=== PATIENT | female | born 1965 | race Caucasian/White ===

== ENCOUNTER → 2021-06-07 | Outpatient (CLI) | payer OTHER ==
[~2021-06-07] MED LIST: GADOTERATE 5 MMOL/10ML VIAL. INT ART ONE; IOHEXOL 300 MG/ML 50 ML VIAL. INT ART ONE; LIDOCAINE 1% Multi-Dose 20 ML VIAL. ID ONE
--- NOTE | 2021-06-07 15:33 | KCIC ---
Study: Fluoroscopically guided arthrogram of the left shoulder joint for MRI Indication: Rotator cuff tear. Contrast: 0.1 cc Clariscan Technique: A timeout was performed prior to beginning the procedure in order to confirm patient identity and lat erality of the injection. The risks, benefits and alternatives of the procedure were discussed. Utilizing sterile technique, fluoroscopic guidance and local anesthesia with 1% lidocaine, the left s houlder joint was accessed utilizing a 22-gauge, 3.5" spinal needle. Confirmation of needle position was obtained with a small amount of radiopaque contrast. Subsequently, 12 cc of a mixture containing 5 cc lidocaine, 15 cc saline and 0.1 cc Clariscan was injected. There were no immediate post procedur e complications. Fluoroscopy time: 21 seconds Number of images obtained: 1 Impression: Technically successful fluoroscopic guided arthrogram of the left shoulder joint without immediate po stprocedure complication. Electronically signed by: RASHAWN LAL MD (06/07/2021 3:30 PM) [id number]
--- NOTE | 2021-06-07 16:30 | KCIC ---
STUDY: MRI arthrogram of the left shoulder INDICATION: Rotator cuff tear. COMPARISON: None. TECHNIQUE: Multiplanar MR imaging of the left shoulder performed after the intra-articular injection of contrast material. The injection portion of the procedure is detailed in a separate report. FINDINGS: AC joint: Mild arthrosis at the AC joint. No gadolinium-containing fluid within the subacromial subde ltoid bursa however there is bursitis with [place] fluid distention of the bursa. Rotator cuff: High-grade bursal sided tear at the supraspinatus/infraspinatus junction approximately 1.7 cm medial to the footprint, image 12 series 14, involving up to 75 percent cross-sectional tendon thickness. Background infraspinatus more so than supraspinatus tendinosis. The teres minor and subsc apularis are intact. Maintained rotator cuff muscular bulk. Small focus of hydroxyapatite deposition within the mid infraspinatus at its insertion. Labrum: Subtle SLAP-type tear extending from superior to posterior/superior. Long head biceps tendon: Intact and normally located. Cartilage: No high-grade or full-thickness chondral defect. Bones: Mildly heterogeneous marrow signal favored physiologic as there is no involvement of the humer al epiphysis. No acute or aggressive abnormality. Miscellaneous: Unremarkable axillary soft tissues. Impression: 1. Focal high-grade bursal sided tear at the supraspinatus/infraspinatus junction involving up to 75% tendon cross-sectional thickness (image 12 series 14). The tear occurs approximately 1.7 cm medial t o the footprint. Background infraspinatus more so than supraspinatus tendinosis. 2. Small focus of hydroxyapatite deposition within the mid infraspinatus at the footprint. Surroundin g heterogeneous T2 signal elevation of the infraspinatus tendon may be related to tendinosis though a ctive calcific tendinitis is also possible. 3. Suspected subtle SLAP-type tear extending from superior to posterior. Intact and normally located long head biceps. 4. Subacromial subdeltoid bursitis with [place] fluid distention of the bursa. No gadolinium within th e bursa to indicate a full-thickness rotator cuff tear. Electronically signed by: RASHAWN LLA MD (06/07/2021 4:27 PM) [id number]
== END | disposition home or self-care (01) ==
LOC: KCIC 12:43
PROVIDERS: ATTEND Physician Assistant
DX: M75.112 Incomplete rotator cuff tear or rupture of left shoulder, not specified as traumatic (principal); S43.432A Superior glenoid labrum lesion of left shoulder, initial encounter; Z88.0 Allergy status to penicillin; X58.XXXA Exposure to other specified factors, initial encounter; Y93.89 Activity, other specified; Y92.89 Other specified places as the place of occurrence of the external cause; Y99.8 Other external cause status
CPT/HCPCS: 23350; 73222; 77002; A9575; J3490; Q9967

== ENCOUNTER 2021-08-03 06:06 | Day surgery (SDC) | payer OTHER ==
[~2021-08-03] VITALS: Ht 167.6 cm; Wt 118.0 kg
[~2021-08-03 06:06] MED LIST changes: +ESCITALOPRAM OX10 MG PO; -GADOTERATE 5 MMOL/10ML VIAL. INT ART ONE; +HYDROmorphone 2 MG/ML INJ. IVP PRN; -IOHEXOL 300 MG/ML 50 ML VIAL. INT ART ONE; +IV RINGERS,LACTATED 1000ML 1,000 ML IV SCH; -LIDOCAINE 1% Multi-Dose 20 ML VIAL. ID ONE; +MORPHINE SULFATE 2 MG/ML INJ. IVP PRN; +NYST15CR TP; +PANT40TA77 PO; +PRAV80TA2 PO; +PROCHLORPERAZINE 10 MG/2 ML VIAL. IVP PRN; +ZOLP5TAB PO; +fentaNYL PF VIAL 100 MCG/2 ML VIAL IVP PRN
[2021-08-03 06:31] VITALS: BP 162/70
[2021-08-03] MEDS ORDERED: PROPOFOL 10 MG/ML (20ML) VIAL. IV ONE (06:43)
[2021-08-03] MEDS ORDERED: ROCURONIUM 50 MG/5 ML VIAL. ONE (06:43)
[2021-08-03] MEDS ORDERED: ONDANSETRON PF 4 MG/2 ML VIAL. ONE (06:44)
[2021-08-03] MEDS ORDERED: fentaNYL PF VIAL 100 MCG/2 ML VIAL ONE (06:44)
[2021-08-03] MEDS ORDERED: DEXAMETHASONE SOD PHOS 4 MG/ML VIAL ONE ×2 (06:44→07:10)
[2021-08-03] MEDS ORDERED: MIDAZOLAM HCL/PF 2 MG/2 ML VIAL. ONE (07:10)
[2021-08-03] MEDS ORDERED: LIDOCAINE 1% PF 2 ML VIAL. ONE (07:11)
[2021-08-03] MEDS ORDERED: ROPIVacaine 0.5% PF 20 ML VIAL. ONE (07:11)
[2021-08-03] MEDS ORDERED: SCOPOLAMINE 1.5MG PATCH. TD ONE (07:15)
[2021-08-03] MEDS ORDERED: EPINEPHrine VIAL 30 MG/30 ML VIAL ONE (07:25)
[2021-08-03] MEDS ORDERED: BUPIVACAINE MPF 0.5% 30 ML VIAL. ONE (07:25)
[2021-08-03] MEDS ORDERED: LIDOCAINE 1% Multi-Dose 20 ML VIAL. ONE (07:25)
[2021-08-03] MEDS ORDERED: OXYC-325 PO (07:43)
--- NOTE | 2021-08-03 07:45 | DISCH ---
DISCHARGE INSTRUCTIONS Condition on Discharge Condition on Discharge: Stable Activity After Discharge Activity Instructions for Disc: Other, see below Other activity instructions: arm to remain in sling, ok to remove for shower Bathing Instructions: Shower-keep dressing dry Weight Bearing Status after Di: Non weight bearing Diet after Discharge Diet after Discharge: Regular Wound Incision Care Wound/Incision Care: Ice to area for comfort, Keep wound/cast CDI, Change dressing Other wound/incision instructi: change dressing in [address] after DC Call your doctor for: Concerns you may have Follow-Up Follow up with: Kaur in 2wks Treatment/Equipment after DC Adaptive Equipment Issued: None KARUNA TOURE II, MD Aug 03, 2021 07:45
[2021-08-03] MEDS ORDERED: PHENYLEPHRINE in 0.9% NACL PF 1 MG/10 ML SYRINGE. IV ONE (07:59)
[2021-08-03] MEDS ORDERED: SUGAMMADEX SODIUM 200 MG/2 ML VIAL. IVP ONE (08:00)
--- NOTE | 2021-08-03 09:07 | PDOC4 ---
Operative Note Operative Note Date of procedure: 08/03/2021 Surgeon: Romie Toure Multimedia Designer: Sanchez Boland, certified alcohol counselor Preoperative diagnosis: Left shoulder rotator cuff tear Possible SLAP tear left shoulder Postoperative diagnosis: Left shoulder labral tear Procedure performed: Arthroscopic left shoulder labral debridement Anesthesia: General plus regional nerve block Findings: Small amount of grade 2-3 changes in glenoid, humeral head cartilage unremarkable Intra-articular portion of rotator cuff essentially unremarkable No loose bodies Tearing of the free edge of labrum superiorly and anteriorly Biceps tendon without pathology Complications: None Blood loss: 10 mL Reason for procedure: Patient is a very pleasant 48-year-old female with chronic shoulder pain who had failed conservative therapies. Please see my outpatient notes for further details. Clinical and radiographic examination including MR arthrogram are consistent with the above preoperative diagnosis and after discussion of the risk benefits and alternatives patient wished to proceed with surgery. Description of procedure: Patient was greeted in the preoperative holding area by myself or the correct extremity was verified and marked. She had placement of a regional nerve block by the anesthesiology team. She was taken back to the operative suite and her antibiotics were started as she was brought back. Once in the operating room, she was transferred gently supine to the operating room table and secured to the bed with all pressure points padded. She underwent successful induction of a general anesthetic. We then placed a large pad under her legs and set her up in a beachchair position maintaining her C-spine in neutral position. After this, we proceeded to prep and drape left upper extremity and shoulder girdle in our usual sterile fashion including [place] at the periphery. I then palpated marked surface anatomy and gricelda lines for my planned incisions. We conducted our standard preoperative timeout. I then used a spinal needle to localize a posterior superior portal and incised skin in accordance with this. I introduced the blunt arthroscopic trocar into the glenohumeral joint followed by the camera. I then used a spinal needle to localize an anterosuperior portal and incised skin accordance with this and dilated this hole as well. I then introduced my probe and conducted my diagnostic arthroscopy with above-noted findings. She had some fraying of her labrum and I debrided this with the shaver and reinspected the labrum I felt it was intact with a solid biceps anchor. I then directed my attention back to the supraspinatus and noted a small amount of inflammation and therefore opted to use a spinal needle to shuttle a PDS suture through this area to view it from the bursal side. I withdrew the equipment from the glenohumeral joint and repositioned the camera in the subacromial space and immediately noted a large amount of very thick bursa. I used combination of shaver and electrocautery to perform a bursectomy, the bursa had a area that appeared like a delaminated tear which corresponded to the point on the MRI, taking into account her head past the PDS suture as well and I felt that after debriding this thickened fibrotic t issue that this certainly may have been the tear noted on MRI. After completing the bursectomy I again reference my PDS suture at past and using the blunt arthroscopic trocar was not able to violate the substance of the tendon anywhere around this area or the area in question on the MRI. Therefore I elected not to take any rotator cuff down. At this point I removed all excess fluid and arthroscopic instrumentation. The portals were closed with simple interrupted 3-0 nylon. The shoulder girdle and arm were cleansed and dried and a soft sterile bulky dressing was applied followed by a sling. After this, the patient was awakened from anesthesia and transferred gently supine to the recovery cart and taken to PACU stable and extubated condition. No complications. Postoperative plan is to have her start physical therapy later this week. She will be in a sling for 2 wks and I will see her back in clinic around that time. ROMIE TOURE II, MD Aug 03, 2021 09:07
[2021-08-03] MEDS ORDERED: oxyCODONE/APAP 5/325 1 TAB TABLET PO ONE (10:15)
[2021-08-03 10:43] VITALS: BP 151/65
== END 2021-08-03 11:20 | disposition home or self-care (01) ==
LOC: SURG 06:06
PROVIDERS: ATTEND Orthopaedic Surgery Sports Medicine
DX: M75.102 Unspecified rotator cuff tear or rupture of left shoulder, not specified as traumatic (principal); E78.00 Pure hypercholesterolemia, unspecified; K21.9 Gastro-esophageal reflux disease without esophagitis; E66.9 Obesity, unspecified; F41.9 Anxiety disorder, unspecified; F32.9 Major depressive disorder, single episode, unspecified; Z85.828 Personal history of other malignant neoplasm of skin; Z79.899 Other long term (current) drug therapy; Z98.890 Other specified postprocedural states; Z72.89 Other problems related to lifestyle; Z88.0 Allergy status to penicillin
CPT/HCPCS: 29822; 64415; A4355; A4565; A4928; A4930; A6222; A6253; A6402; J0171; J0690; J1100; J2250; J2370; J2405; J2704; J2795; J3010; J3490; A4452